=== PATIENT | female | born 1985 | race Caucasian/White ===

== ENCOUNTER → 2020-03-09 18:24 | Outpatient (CLI) | payer OTHER, SELFPAY ==
[2020-03-09 08:18] VITALS: BMI 19.6
[2020-03-09 08:50] VITALS: BMI 19.6
--- NOTE | 2020-03-09 18:28 | US_ITS ---
ACR Level 3 findings have been noted. An addendum which confirms receipt of the report will follow. HISTORY: Possible fibroid. LMP 02/28/2020. 50 one images and one cine clip. No comparison imaging. Endovaginal imaging only. Findings: The cine clip demonstrates a very heterogeneous uterus with multiple masses. The urinary bladder is mostly decompressed. The uterus is incompletely measured but suggested at 11.4 x 8.1 x 11.1 cm. The cervix contains some heterogeneous tissue. Vascularity is present within the myometrium and the tissue about the cervix, but none is present within the tissue within the endocervical canal. Within the uterine fundus as measured on the axial images there is near 11 cm mass. It is not measured in multiple planes. It is hypovascular compared to what is apparent adjacent myometrial tissue US/Transvaginal Non- IMPRESSION: Enlarged uterus with multiple masses most likely uterine leiomyomata. Apparent tissue within the endocervical canal. This of unknown etiology, and may represent blood, blood clot, or even neoplasia. at 2036 Reported and signed by: Jaydon Parker MD Electronically Signed: Jaydon Parker MD at 20:35 EDT Tel , Service support ,
== END ==
PROVIDERS: PCP Nurse Practitioner Family; Visit Provider Obstetrics & Gynecology
DX: D21.9 Benign neoplasm of connective and other soft tissue, unspecified (principal)
CPT/HCPCS: 76830

== ENCOUNTER → 2020-03-17 15:30 | Outpatient (CLI) | payer OTHER, SELFPAY ==
[2020-03-17 13:36] VITALS: BMI 19.9
[2020-03-23 16:26] LABS: HPV APTIMA, High Risk Negative (Negative)
== END ==
PROVIDERS: PCP Nurse Practitioner Family; Referring Provider Obstetrics & Gynecology; Visit Provider Obstetrics & Gynecology
DX: Z12.4 Encounter for screening for malignant neoplasm of cervix (principal)
CPT/HCPCS: 87624; 88175; G0145

== ENCOUNTER → 2020-03-27 16:39 | Outpatient (CLI) | payer OTHER, SELFPAY ==
[2020-03-27 11:21] VITALS: BMI 19.9
[2020-03-31 04:50] LABS: HPV APTIMA, High Risk Negative (Negative)
== END ==
PROVIDERS: PCP Nurse Practitioner Family; Visit Provider Obstetrics & Gynecology
DX: Z12.4 Encounter for screening for malignant neoplasm of cervix (principal)
CPT/HCPCS: 87624; 88175; G0145

== ENCOUNTER → 2020-05-22 10:00 | Outpatient (CLI) | payer OTHER, SELFPAY ==
[2020-03-27 11:21] VITALS: BMI 19.9
[2020-05-17 14:34] VITALS: BMI 19.8
[2020-05-23 14:44] LABS: Hematocrit 46.4 % (37-47); Hemoglobin 14.8 g/dL (12.0-15.0); Mean Corp Hgb Conc 31.9 g/dL (32-36); Mean Corpuscular Hgb 28.5 pg (27.0-32.0); Mean Corpuscular Volume 89.4 fL (81-99); Mean Platelet Vol. 10.6 fl (6.2-12.0); Platelet Count 266 K/mm3 (150-450); RBC Distribution Width SD 39.8 fl (35.1-43.9); Red Blood Count 5.19 M/mm3 (4.2-5.4); White Blood Count 5.7 K/mm3 (4.4-11.0)
[2020-05-23 14:46] LABS: Internal QC Validated? YES +Cl - CLEAR BKGD; Pregnancy, Urine Negative Negative
[2020-05-23 15:01] LABS: Partial Thromboplast Time 26.8 Seconds (24.1-36.2); Prothrombin Time (Protime)PT. 12.1 SECONDS (11.7-14.9)
[2020-05-23 15:13] LABS: AST(SGOT) 17 U/L (15-37); Alanine Aminotransfer ALT/SGPT 22 U/L (13-56); Albumin, Serum 4.1 g/dL (3.2-5.0); Alkaline Phosphatase 43 U/L (45-117); Bilirubin, Direct 0.14 mg/dL (0.00-0.30); Globulin 3.9 g/dL (2.2-4.2); Magnesium 2.4 mg/dL (1.6-2.6)
--- NOTE | 2020-05-30 07:39 | HP.PCM_ITS ---
- Problem List (1) Fibroid uterus Status: Acute History and Physical Date of Admission: 05/30/20 Patient presented to same-day surgery for planned total abdominal hysterectomy and bilateral salpingectomy. Upon arrival, patient reported that she had eaten beets to the prior evening and felt that she had something stuck in her throat. Upon taking preop medications, the patient began aggressively vomiting and reporting that she felt like there was something stuck in her esophagus. Decisi on made to cancel surgery. Patient sent to to emergency room for evaluation for suspected esophageal obstruction.
[2020-05-30] MEDS: Acetaminophen 500 MG Tablet 1000 MG PO (07:48)
[2020-05-30] MEDS: Celecoxib 200 MG Capsule 400 MG PO (07:48)
[2020-05-30] MEDS: Gabapentin 600 MG Tablet PO (07:49)
[2020-05-30] MEDS: Lactated Ringers 1,000 ML 40 ML IV (07:50)
[2020-05-30] MEDS: Phenazopyridine 95 MG Tablet 190 MG PO (07:50)
[2020-05-30] MEDS: Scopolamine 1mg/72hr Patch 1 PATCH TD (07:50)
[2020-05-30] MEDS: dexAMETHasone 10 MG/ML Vial 8 MG IV (07:51)
[2020-05-30 07:52] VITALS: BP 149/95; PULSE 88; RESP 18; TEMP 36.7; O2SAT 98; BMI 19.4
--- NOTE | 2020-05-30 08:11 | SUR.PREOP ---
PATIENT TOLD THIS NURSE THAT SHE GOT CHOKED ON A PIECE OF MEAT LAST NIGHT AND WAS UNABLE TO CLEAR IT FOR A COUPLE HOURS. SHE WAS ABLE TO DRINK FLUIDS UNTIL THIS MORNING. I GAVE HER SOME WATER AND HER ERAS PROTOCOL PILLS AND SHE WAS ABLE TO TAKE ALL THE SMALL ONES ONE AT A TIME WITHOUT DIFFICULTY. SHE TOOK ONE TYLENOL AND IT FELT LIKE IT GOT STUCK AGAIN. PATIENT STARTED VOMITING IMMEDIATELY AFTER ONE TYLENOL. DR. THAPA CAME IN THE ROOM AND SPOKE WITH THE PATIENT. HE WAS VERY CONCERNED AND SPOKE WITH DR. ANGEL. SHE IS GOING TO SPEAK WITH THE PATIENT, BUT THE SURGERY PROBABLY WILL NOT PROCEED AT THIS POINT D/T POSSIBLE OBSTRUCTION. MAGNESIUM WAS HELD AND PATIENT ALREADY RECEIVED ALL MEDICATIONS EXCEPT ONE TYLENOL AND IV DEXAMETHASONE. ALSO ON A SIDE NOTE PATIENT WAS UNABLE TO GET URINE SINCE SHE ALREADY VOIDED PRIOR TO COMING IN. SHE HAD A URINE TEST DONE ON 05/23/20 AND IT WAS NEGATIVE, AND SHE HAS NOT HAD INTERCOURSE SINCE.
--- NOTE | 2020-05-30 08:21 | SUR.PREOP ---
THIS NURSE WENT BACK INTO THE ROOM AND LOOKED INTO THE EMISIS BAG. THERE WAS PIECES WHAT LOOKED LIKE THE TYLENOL IN THE BAG. I WILL LET DR. ARSHAD KNOW THAT. HOPEFULLY THE TYLENOL CAME BACK UP AND IT COULD JUST POSSIBLY BE THE MEAT STILL OBSTRUCTING.
[2020-05-30 08:30] LABS: Bedside Glucose 84 mg/dL (70-110)
== END ==
PROVIDERS: Anesthesiology; PCP Nurse Practitioner Family; Referring Provider Obstetrics & Gynecology; Visit Provider Obstetrics & Gynecology
DX: Z20.828 Contact with and (suspected) exposure to other viral communicable diseases (principal)
CPT/HCPCS: 36415; 80076; 81025; 82962; 83735; 85027; 85610; 85730; 87426; C9803; J7120

== ENCOUNTER 2020-05-30 08:59 | Day surgery (SDC) | payer OTHER, SELFPAY ==
[2020-05-30] VITALS (8 sets, daily range): BP systolic 102–143; BP diastolic 55–93; PULSE 74–100; RESP 16–18; TEMP 36.8–37; O2SAT 99–100; BMI 19.4; BMI 19.3
--- NOTE | 2020-05-30 09:13 | RAD_ITS ---
STUDY: X-RAY CHEST REASON FOR EXAM: Female, 34 years old. COUGH TECHNIQUE: Single AP portable view of the chest. COMPARISON: None. FINDINGS: The lungs are clear and expanded. There is no demonstrated pleural abnormality. Normal size heart. Normal mediastinum and rosy. Normal visualized pulmonary arteries. Normal visualized aortic arch and descending thoracic aorta. Normal visualized thoracic spine. Normal visualized ribs, clavicles, and shoulders. There is no demonstrated abnormality of the visualized soft tissue structures of the upper abdomen. RAD/Chest 1 View (Portable) IMPRESSION: Normal x-ray examination of the chest. Pending Final Proof Editing
--- NOTE | 2020-05-30 09:14 | ED.VISSUMM ---
- ER Visit Summary Date of Service: 05/30/20 Chief Complaint: Possible food impaction History of Present Illness: The patient is a 34 F who presents with a possible food impaction that occurred yesterday. Patient was eating some beef stew last night when she felt like something got stuck. Patient states she thought it eventually went down last night. Patient states that when she got up today and took her medication, she felt like there was something still stuck in her lower esophagus. Patient has been vomiting but is unable to get any food up with her emesis. Patient states she is unable to swallow liquids. Patient denies any shortness of breath. Physical Examination: Vital signs are stable. Patient is afebrile. Patient is in no acute distress. Oral mucosa is pink and moist. Neck is supple. Trachea is midline. There is no JVD noted. Heart was regular rate and rhythm. Lungs are clear and equal bilaterally. Abdomen is soft. Bowel sounds are normal. There is no tenderness. There is no rebound or guarding noted. Skin is warm dry. Cranial nerves II through XII are intact. There are no focal motor or sensory deficits noted. Extremities are intact. There is no calf tenderness or edema. Test Results: Portable 1 view chest x-ray was obtained. On my interpretation, lung banks are clear. There is normal cardiac silhouette. Bony thorax is normal. There is no acute process noted. Neurologist also interpreted the x-ray and agrees. Emergency Department Course and Treatment: Patient was given IV fluids. Patient was given a dose of glucagon. Patient had no improvement with this. Case was discussed with Dr. Colbert. Patient will be taken to endoscopy for upper endoscopy. Patient will be discharged home after that. Patient and spouse understood and were agreeable with the plan. All questions were answered. Disposition: Transfer to endoscopy Impression: Esophageal food impaction This note was generated with Ide[employer] dictation software. It may contain incorrect words, spelling, and punctuation that were not noted in review of the chart prior to signing ED Disposition - Plan for ED Patient: Disposition: Acute Care Hospital [facility] Diagnosis: Obstruction of esophagus due to food impaction Instructions: ED Esophageal Foreign Body, Resolved Referrals: Dayami Bullock PREP ROOM SUPERVISOR, PREP ROOM SUPERVISOR-C [Primary Care Provider] -
[2020-05-30] MEDS: 0.9% Normal Saline 1,000 ML 999 ML IV (09:20)
[2020-05-30] MEDS: Glucagon 1 MG/ML Syringe IV (09:20)
--- NOTE | 2020-05-30 10:30 | NURSING ---
Pt. states had test week ago that was negative and no chance of being that has been ill
[2020-05-30] MEDS: Lactated Ringers 1,000 ML 100 ML IV (10:32)
--- NOTE | 2020-05-30 11:08 | HP.PCM_ITS ---
Problem List (1) Esophageal foreign body Status: Acute Qualifiers: Encounter type: initial encounter Qualified Code(s): T18.108A - Unspecified foreign body in esophagus causing other injury, initial encounter History of Present Illness Date of Admission: 05/30/20 The patient is a 34 F who presents with a possible food impaction that occurred yesterday. Patient was eating some beef stew last night when she felt like s omething got stuck. Patient states she thought it eventually went down last night. Patient states that when she got up today and took her medication, she felt like there was something still stuck in her lower esophagus. Patient has been vomiting but is unable to get any food up with her emesis. Patient states she is unable to swallow liquids. Patient denies any shortness of breath. Past Medical History Allergies amoxicillin [From Augmentin] Allergy (Verified 05/30/20 10:14) Swelling clavulanic acid [From Augmentin] Allergy (Verified 05/30/20 10:14) Swelling Home Medications: Ambulatory Orders Medication Instructions Recorded norethindrone 1 mg-ethinyl 1 tab PO DAILY 03/09/20 estradiol 35 mcg tablet Loratadine/Pseudo 240/10 1 tab PO PRN PRN 05/22/20 [Claritin-D 24 Hr] Surgical History: Surgical History (Last Reviewed 05/30/20 @ 11:[address] Davin Colbert MD) History of tonsillectomy and adenoidectomy Z98.890 Smoking Status: Never smoker - *Family History Maternal Family History: Family History (Last Reviewed 05/30/20 @ 11:[address] Davin Colbert MD) Mother H/O: hysterectomy Lung cancer Review of Systems Constitutional: Denies: Chills, Fever, Weight Change Cardiovascular: Denies: Chest Pain, Chest Pressure, Chest Tightness, P alpitations Respiratory: Denies: Cough, Hemoptysis, Shortness of breath at rest, Shortness of breath upon exertion, Wheezing VTE Information - Inpt Only VTE Present on Admission: No VTE Mechan Device Prophylaxis: None VTE Pharm Prophylaxis ordered?: No Reason prophylaxis not ordered:: Treatment Not Indicated Patient Problems: Active and Suspected Problems (Last Reviewed 05/17/20 @ 14:35 by Leah Ho) Obstruction of esophagus due to food impaction (Acute) - Physical Exam Vitals/I&O's: Vital Signs Temp Pulse Resp BP Pulse Ox 98.2 F 76 16 137/93 H 100 05/30/20 10:15 05/30/20 10:15 05/30/20 10:15 05/30/20 10:15 05/30/20 10:15 Oxygen Delivery Method Room Air Weight: 147 lb Body Mass Index (BMI) 19.3 General: Alert, Oriented x3 Lungs: Clear to auscultation Cardiovascular: Regular rate, Regular Rhythm, No murmurs Abdomen: Bowel Sounds Present, Soft, Non Tender, Non-Distended Current Medications Lactated Ringer's () 1,000 mls @ 100 mls/hr IV .Q10H JULIUS Last Admin: 05/30/20 10:32 Dose: 100 mls/hr Documented by: Assessment/Plan All Active Problems (Last Reviewed 05/17/20 @ 14:35 by Leah Ho) Fibroid uterus (Acute) Obstruction of esophagus due to food impaction (Acute) Esophageal foreign body (Acute) Plan is perform an esophagogastroduodenoscopy with removal of possible meat from the distal esophagus. Risk to include injury to the esophagus have been reviewed with the patient the patient does agree to proceed. Office Visits / Consults: 62137 OP Consult L4 - Modifier 57
--- NOTE | 2020-05-30 11:31 | OP.EGD_ITS ---
Patient Name: Alma Pak Procedure Date: 05/30/2020 11:18 AM Date of : 1985 Age: 34 Procedure: Upper GI endoscopy Indications: Foreign body in the esophagus Providers: Davin Colbert MD Medicines: See the Anesthesia note for documentation of the administered medications Patient Profile: This is a 34 year old female. Refer to note in patient chart for documentation of history and physical. Complications: No immediate complications. Procedure: Pre-Anesthesia Assessment: - Prior to the procedure, a History and Physical was performed, and patient medications and allergies were reviewed. The patient's tolerance of previous anesthesia was also reviewed. The risks and benefits of the procedure and the sedation options and risks were discussed with the patient. All questions were answered, and informed consent was obtained. Prior Anticoagulants: The patient has taken no previous anticoagulant or antiplatelet agents. ASA Grade Assessment: II - A patient with mild systemic disease. After reviewing the risks and benefits, the patient was deemed in satisfactory condition to undergo the procedure. After obtaining informed consent, the endoscope was passed under direct vision. Throughout the procedure, the patient's blood pressure, pulse, and oxygen saturations were monitored continuously. The Endoscope was introduced through the mouth, and advanced to the second part of duodenum. The upper GI endoscopy was accomplished without difficulty. The patient tolerated the procedure well. Scope In: 11:20:58 AM Scope Out: 11:24:34 AM Total Procedure Duration Time 0 hours 3 minutes 36 seconds Findings: Food was found in the distal esophagus. Removal of food was accomplished. No biopsies or other specimens were collected for this exam. The area where the meat was stuck was just slightly above where the GE junction is located. It is discolored and I do not know why I think it probably has to do with what she was eating and I was able to push the meat through into the stomach but I did not feel comfortable doing biopsies on this at this time because it was already irritated from the meat. It almost has an alligator skin appearance. I think rescoping her in 6 weeks and doing biopsies at that time would be appropriate. The Z-line was at 40 cm The entire examined stomach was normal. No biopsies or other specimens were collected for this exam. The examined duodenum was normal. No biopsies or other specimens were collected for this exam. Impression: - Food in the distal esophagus. No specimens collected. Removal was successful. - Normal stomach. No specimens collected. - Normal examined duodenum. No specimens collected. Recommendation: - Discharge patient to home. - Resume previous diet. - Use Prilosec (omeprazole) 40 mg PO daily for 2 weeks. - Repeat upper endoscopy in 6 weeks to evaluate the response to therapy. - Return to my office in 1 week. - Continue present medications. Procedure Code(s): --- Professional --- 57052, Esophagogastroduodenoscopy, flexible, transoral; with removal of foreign body(s) Diagnosis Code(s): --- Professional --- T18.128A, Food in esophagus causing other injury, initial encounter T18.108A, Unspecified foreign body in esophagus causing other injury, initial encounter CPT copyright 2017 [employer]. All rights reserved. The codes documented in this report are preliminary and upon shake feeder review may be revised to meet current compliance requirements. MD Davin Graham MD 05/30/2020 11:30:53 AM This report has been signed electronically. Number of Addenda: 0 Note Initiated On: 05/30/2020 11:18 AM
--- NOTE | 2020-05-30 11:31 | OP.CCLET_ITS ---
05/30/2020 Dayami Bullock Re : Upper GI endoscopy procedure for Alma Bullock This procedure was performed on Saturday, May 30, 2020. My impressions and recommendations are as follows: Impressions : - Food in the distal esophagus. No specimens collected. Removal was successful. - Normal stomach. No specimens collected. - Normal examined duodenum. No specimens collected. Recommendations : - Discharge patient to home. - Resume previous diet. - Use Prilosec (omeprazole) 40 mg PO daily for 2 weeks. - Repeat upper endoscopy in 6 weeks to evaluate the response to therapy. - Return to my office in 1 week. - Continue present medications. My findings are described in the full procedure note, which is enclosed. If I can be of further assistance, please feel free to contact me at Doctor phone number(s): , Fax: [phone], Work: . Sincerely, MD Davin Graham MD 05/30/2020 11:30:53 AM This report has been signed electronically.
== END 2020-05-30 12:36 | disposition home or self-care (01) ==
LOC: ED 10:12 → SDC 10:13 → AC 10:18
PROVIDERS: Emergency Provider Emergency Medicine; PCP Nurse Practitioner Family; Visit Provider Surgery
PROC: 0DJ08ZZ Inspection of Upper Intestinal Tract, Via Natural or Artificial Opening Endoscopic (ICD-10-PCS; CPT 43235; principal; 2020-05-30 11:25)
DX: T18.128A Food in esophagus causing other injury, initial encounter (principal); X58.XXXA Exposure to other specified factors, initial encounter; Y93.89 Activity, other specified; Y92.9 Unspecified place or not applicable; Y99.9 Unspecified external cause status
CPT/HCPCS: 43247; 71045; 99283; J7030; J7120; A4216; J1610; J2405

== ENCOUNTER 2020-06-20 06:19 | Inpatient (IN) | payer OTHER, SELFPAY ==
[2020-06-14 16:22] VITALS: BMI 19.8
[2020-06-19 10:00] LABS: Hematocrit 45.9 % (37-47); Hemoglobin 14.5 g/dL (12.0-15.0); Mean Corp Hgb Conc 31.6 g/dL (32-36); Mean Corpuscular Hgb 28.5 pg (27.0-32.0); Mean Corpuscular Volume 90.4 fL (81-99); Mean Platelet Vol. 11.2 fl (6.2-12.0); Platelet Count 235 K/mm3 (150-450); RBC Distribution Width CV 12.2 % (11.6-14.6); RBC Distribution Width SD 40.7 fl (35.1-43.9); Red Blood Count 5.08 M/mm3 (4.2-5.4); White Blood Count 5.8 K/mm3 (4.4-11.0)
--- NOTE | 2020-06-19 16:04 | HP.PCM_ITS ---
- Problem List (1) Fibroid uterus Status: Acute Qualifiers: History and Physical Date of Admission: 06/20/20 Intake Vital Signs 06/14/20 Height 6 ft 1 in 06/14/20 Weight: 150 lb 06/14/20 BP 146/94 H Intake Visit Reasons: DANIEL Allergies amoxicillin [From Augmentin] Allergy (Verified 06/12/20 09:34) Swelling clavulanic acid [From Augmentin] Allergy (Verified 06/12/20 09:34) Swelling PFSH Surgical History History of tonsillectomy and adenoidectomy (Acute) Family History Mother H/O: hysterectomy Lung cancer Social History (Updated 06/14/20 @ 17:[address] Cierra Gutierrez MD) Smoking Status: Never smoker alcohol intake: current details: social substance use type: does not use caffeine: Yes seatbelt use: always do you feel safe at home: Yes additional social history: Ariel valero Patient is unemployed HPI DANIEL: Details: JARED ODOM is a 34 year old who presents for pre-op visit for DANIEL, BS, possible BSO. Pregancy History 0 Elective abortions Hx Para Spontaneous abortions Hx # Term Pregnancies Ectopic pregnancies Hx # Pregnancies Multiple births # of living children ROS Const Constitutional: Reports system reviewed and no additional complaints, except as docu; denies chills or fever(s) Eyes Eyes: Reports system reviewed and no additional complaints, except as docu ENT ENT: Reports system reviewed and no additional complaints, except as docu Cardio Card: Reports system reviewed and no additional complaints, except as docu; denies chest pain, leg swelling or rapid, pounding, or irregular heartbeat Resp Resp: Reports system reviewed and no additional complaints, except as docu; denies dyspnea GI GI: Reports system reviewed and no additional complaints, except as docu; denies constipation, nausea or vomiting : Reports system reviewed and no additional complaints, except as docu; denies painful urination, pelvic pain, urinary frequency, urinary hesitancy, ur inary urgency, vaginal discharge, vaginal odor or vaginal itching Musc Musc: Reports system reviewed and no additional complaints, except as docu Skin Skin/Breast: Reports system reviewed and no additional complaints, except as docu Neuro Neuro: Reports system reviewed and no additional complaints, except as docu Psych Psych: Reports system reviewed and no additional complaints, except as docu Endo Endo: Reports system reviewed and no additional complaints, except as docu Exam Const General: cooperative, healthy appearing, comfortable, well developed, well groomed Neck Neck: normal visual inspection, full ROM Resp Effort & Inspection: normal respiratory effort, able to speak in complete sentences, symmetric chest movement Cardio Rate: regular rate Skin General: no rashes or lesions noted, elasticity normal, turgor normal Lesions: no lesions Rashes: no rashes Neuro General: alert, awake, oriented x3 Cranial Nerves: CN's II-XI intact bilaterally, PERRL, EOM intact bilaterally Cognition: normal cognition Speech: speech normal Gait: normal gait Extrem General: normal to inspection, full ROM, no pedal edema Psych Appearance: grossly normal Mental Status: mental status grossly normal Mood: congruent mood Affect: normal affect Speech and Movement: speech and movement normal Attitude: cooperative Thought Process: normal Thought Content: normal Assessment & Plan 1. Intramural, submucous, and subserous leiomyoma of uterus D25.1; D25.0; D25.2 Plan Patient presents for pre-op visit for total abdominal hysterectomy, bilateral salpingectomy, possible bilateral salpingoophorectomy Prior surgery cancelled due to esophageal food impaction - on omeprazole, reports no further issues with dysphagia since starting medication. Told by general surgery could wait until after hysterectomy to have repeat EGD to reevaluate esophagus No other changes to medical history ROS negative Aware of risks and benefits of surgery. Aware of risks of bleeding, infection, and visceral or vascular injury. Reviewed these risks at length at last visit and patient denies questions Consent signed in office today. UPDATE- I have seen the patient and performed any clinically relevant updates to the history and physical exam. Cierra Gutierrez MD
[2020-06-20] VITALS (15 sets, daily range): BP systolic 122–136; BP diastolic 77–90; PULSE 73–108; RESP 14–18; TEMP 36.1–37.1; O2SAT 95–100
[2020-06-20 06:45] LABS: Internal QC Validated? YES +Cl - CLEAR BKGD; Pregnancy, Urine Negative Negative
[2020-06-20] MEDS: Celecoxib 200 MG Capsule 400 MG PO (07:16)
[2020-06-20] MEDS: Gabapentin 600 MG Tablet PO (07:16)
[2020-06-20] MEDS: Phenazopyridine 95 MG Tablet 190 MG PO (07:16)
[2020-06-20] MEDS: Acetaminophen 500 MG Tablet 1000 MG PO ×2 (07:17→15:53)
[2020-06-20] MEDS: Scopolamine 1mg/72hr Patch 1 PATCH TD (07:18)
[2020-06-20] MEDS: Lactated Ringers 1,000 ML 40 ML IV (07:36)
[2020-06-20] MEDS: dexAMETHasone 10 MG/ML Vial 8 MG IV (07:37)
[2020-06-20 08:01] LABS: Bedside Glucose 77 mg/dL (70-110)
--- NOTE | 2020-06-20 08:35 | HYST_PTH ---
PATIENT: JARED ODOM LOC: MS3 U#:[id number] AGE/SX: 35/F ROOM: MS319 RE06/20/[address]: Dr. Cierra Gutierrez MD : 1985 BED: 1 DIS: 06/21/2020 SPEC #: [id number] RECD: 06/20/20 11:59 STATUS: LAURA BUTCHER #: [id number] EHSAN: 06/20/20 08:[address]: Cierra Gutierrez DEPT: SURGICAL PATHOLOGY RECD BY: Maia Samayoa ENTERED: 06/20/20 12:47 SP TYPE: HYSTERECT OTHR DR: STEFAN Brandt Tissues: Uterus, NOS Procedures: Surgery Specimen Level V HEADER OPERATION: ERAS, hysterectomy, DANIEL, salpingectomy PRE-OP DIAGNOSIS: Intramural submucous and subserous leiomyoma of uterus TISSUE SUBMITTED: Cervix, uterus, bilateral fallopian tubes, fibroid MICROSCOPIC DIAGNOSIS Cervix, uterus, bilateral fallopian tubes, hysterectomy and bilateral salpingectomy: Cervix - chronic cystic cervicitis. Endometrium - weakly proliferative endometrium. Myometrium - intramural and subserosal leiomyomas (largest measuring 14 cm in greatest dimension). Bilateral fallopian tubes - no pathologic diagnosis. SJ:rg 06/21/2020 MICROSCOPIC DESCRIPTION Slides are reviewed. GROSS DESCRIPTION Received in fixative is one container labeled with the patient's name and designated cervix, uterus, bilateral fallopian tubes and fibroid. The specimen consists of a hysterectomy specimen consisting of uterus with cervix and detached bilateral fallopian tubes. The uterus with cervix weighs 928 gm and measures 21 x 16 x 11 cm. The serosal surface is douglas, glistening. The uterus is markedly distorted with the presence of a large subserosal nodular mass. The ectocervical mucosa is focally eroded. The external os is circular in contour. The endocervical canal measures 4 cm in length and the endocervical mucosa is unremarkable. The triangular endometrial cavity measures 4 cm in length and up to 2 cm in width. The endometrium is douglas, glistening without any mass lesion and measures 0.1 cm in thickness. Sections of the uterine wall reveal a large subserosal nodular mass measuring 14 cm in greatest dimension. Sections of this mass reveals douglas whorled cut surfaces without areas of hemorrhage, necrosis or cystic degeneration. Sections of the uterine wall also reveal a few smaller nodular masses measuring 0.2 to 0.5 cm in greatest dimension. The uninvolved uterine wall measures up to 2 cm in thickness. The fallopian tubes are not identified as right or left. One of the fallopian tube measures 5 cm in length and 0.5 cm in diameter. The fimbrial end is identified. Sections reveal unremarkable cut surfaces. The second fallopian tube is similar in appearance to the other one and measures 4 cm in length and 0.5 cm in diameter. Cosmetic Consultant sections are submitted in 12 cassettes as follows: 1 - anterior cervix, 2??posterior cervix, 3 & 4 - anterior uterine wall, 5 & 6 - posterior uterine wall, sections of the uterine wall also contains the smaller nodular masses, 7-10 - largest subserosal nodular mass, 11 & 12 - bilateral fallopian tubes with each cassette containing one fallopian tube. / NAIMA:analy 06/20/20 TC:1 CPT: 06436
[2020-06-20] MEDS: Cefazolin 2 GM in 0.9% Normal Saline 100 ML IV (08:43)
[2020-06-20] MEDS: Lactated Ringers 1,000 ML 70 ML IV ×2 (10:16→13:43)
[2020-06-20] MEDS: Ondansetron ODT 4 MG Tablet PO (14:17)
[2020-06-20] MEDS: oxyCODONE 5 MG Tablet PO (15:52)
--- NOTE | 2020-06-20 16:03 | CASEMGMT ---
RN CM PUBLIC HEALTH ASSISTANT CM to room to meet with patient for initial transition planning/care coordination assessment. RN MICHELLE introduced self and role at [facility]. Pt voices understanding and consents to assessment at this time. Pt resting in bed in no distress at this time. @ bedside. Pt is A/O at this time and answers all questions appropriately. Care providers, pharmacy, and demographics verified/updated at this time. PCP: Dayami Bullock NP Specialists:Dr Gutierrez-surgeon. Change Booth Attendant @ [facility] Pharmacy: [facility] Retail Insurance: [employer] Prescription Benefit: yes Living Will/HPOA: Pt does not currently have LW/HCPOA. Made aware that pt can contact SW as an out-pt and make appt in the future if she decides she would like to talk with someone about this or would like to utilize [facility] social work for advanced directive completion. Given Ui Programmer Rac card with information and contact number. LNOK: , Tr Living Arrangements: Lives w/her , Tr. Independent. Transportation: Pt states drives self and states no transportation concerns at this time. also drives. DME: Denies using any DME and denies needs. HHC/SNF: no history of either Pt/ wish for pt to return home and states has no concerns with going home at time of discharge. CM to follow for home oxygen needs and any discharge planning/needs. Pt/ voice no concerns/needs at this time. Advised them to ask for CM if any further questions/concerns/needs arise. They voice understanding. PLAN: Home w/spousal support and discharge plans in place. Alona DARLING RN, CM
--- NOTE | 2020-06-20 17:25 | PCM.OPRPT ---
Problem List (1) Fibroid uterus Status: Acute Qualifiers: Report of Operation Date of Procedure: 06/20/20 Pre-Operative Diagnosis: Fibroid uterus Post-Operative Diagnosis: Same Surgery/Procedure Performed:: Total abdominal hysterectomy, bilateral salpingectomy via Pfannenstiel skin incision Description of Surgical Findings:: Enlarged fibroid uterus with large posterior fibroid completely filling the posterior cul-de-sac. Normal-appearing tubes and ovaries bilaterally. plastic surgery assistant: Margret Kulkarni Type of Anesthesia:: General Special Medications: Ancef 2 g Specimen's removed: Uterus, cervix, bilateral fallopian tubes Estimated Blood Loss (mL): 100 cc Fluids Replaced: 1500 cc Description of Procedure: Patient was taken to the operating room where general anesthesia was obtained without difficulty. She was prepped and draped in the dorsal supine position. Degroot catheter was inserted under sterile technique. A Pfannenstiel incision was made with a scalpel. The incision was carried down to the fascia with the Bovie. The fascia was incised transversely and dissected off the rectus muscle using sharp dissection with the Bovie. Electrocautery was used for hemostasis. The peritoneum was opened taking care not to injure any underlying structures. Laparotomy revealed no obvious abnormalities. A large Eugene retractor was placed and the bowel was packed away into the upper abdomen to improve visualization and protect adjacent tissue. The above findings were noted. The tubes and ovaries appeared normal bilaterally. The cornea were grasped using Kalli clamps and the uterus elevated. The fallopian tubes were elevated bilaterally and the mesosalpinx was cauterized and transected using the Bovie. The tubes were amputated and removed from the operative field. The round ligament on the left was grasped and divided using cautery and then suture ligated. The peritoneum was opened lateral to the infundibulopelvic ligaments. The anterior leaf of the broad ligament was divided and a bladder flap created. The ureters were identified and found to be well low in the pelvis and clear of the surgical field. An avascular window was found in the posterior leaf of the broad ligament and a hole opened. The uteroovarian ligament was clamped, cut and double ligated. The same procedure was carried out on the right with the ureter again found to be well low in the pelvis and clear of the surgical field. Once the anterior leaf of the broad ligament was completely divided the bladder was taken down off the lower segment of the uterus and the cervix using a combination of cautery and blunt dissection. The uterine vessels were skeletonized bilaterally. The uterine vessels were bilaterally clamped, cut and suture ligated. The cardinal ligaments were bilaterally clamped, cut and suture ligated. The uterosacral ligaments were bilaterally clamped, cut and suture ligated.The cervix was then divided sharply from the vagina. The uterus, tubes, and cervix were all sent to pathology. Both corners of the vaginal vault were secured and the vault was closed with interrupted figures of 8 of 0 Vicryl suture. All pedicles were then sequentially checked for hemostasis which appeared excellent. The pelvis was irrigated with 1000 cc of normal saline to clear out all clots and debris. Dimitri was then placed over the vaginal cuff and surgical pedicles. All packs and retractors were removed from the abdomen. The peritoneum was closed using a running 3-0 vicryl suture. The subfascial space was inspected and hemostasis obtained with cautery. The fascia was closed using #1 stratafix suture in a running fashion. Subcutaneous tissue was inspected and hemostasis ensured with cautery. Subcutaneous space was closed with 3-0 Monocryl suture in a running fashion. The skin was closed with a running subcuticular suture using 4-0 Monocryl suture. At the end of the procedure all sponge, needle and instrument counts were correct. The patient was extubated and taken to recovery in stable condition. - Complications None apparent - Admit VTE Documentation VTE Present on Admission: No VTE Mechan Device Prophylaxis: SCD's VTE Pharm Prophylaxis ordered?: No Multi Select Codes - Urinary/Genital Urinary/Genital CPT Codes: 47819 [facility]
--- NOTE | 2020-06-20 17:39 | DCINST_ITS ---
Discharge Diet: No Restrictions Discharge Activity: Return to Normal Activity, May Not Drive - while taking narcotic pain medications., May Shower May resume sexual activity in: 6-8 weeks Call your doctor if your incision/area has: Continuous Slow Oozing, Sudden Increased Bleeding, Increased Pain/ Swelling, Increased Redness, Foul Smelling Discharge Call your doctor if you observe: Fever of 101 or Higher, Inability to urinate, Inability to have a bowel movement, Using more than one pad per hour Allergies/Adverse Reactions: Allergies amoxicillin [From Augmentin] Allergy (Verified 06/12/20 09:34) Swelling clavulanic acid [From Augmentin] Allergy (Verified 06/12/20 09:34) Swelling Medications to take at Discharge norethindrone 1 mg-ethinyl estradiol 35 mcg tablet 1 tab PO DAILY 03/09/20 Omeprazole 20 mg PO BID 06/12/20 Loratadine [Claritin] 10 mg PO DAILY PRN PRN 06/20/20 Primary Care Physician: Dayami Bullock INTENSIVE CARE UNIT NURSE, INTENSIVE CARE UNIT NURSE-C [Primary Care Provider] - Test Results: Test results from this visit will be discussed in further detail at your follow- up appointment, if applicable.
[2020-06-20] MEDS: Ketorolac 30 MG/ML Syringe IV (18:03)
[2020-06-20] MEDS: Pantoprazole Sodium 20 MG Tablet PO (22:00)
[2020-06-20] MEDS: Docusate Sodium 100 MG Capsule PO (22:00)
[2020-06-21] MEDS: Acetaminophen 500 MG Tablet 1000 MG PO ×4 (00:03→18:14)
[2020-06-21] MEDS: Ketorolac 30 MG/ML Syringe IV ×2 (00:03→05:41)
[2020-06-21] MEDS: 0.9% Saline Lock 10 ML Syringe IV (00:07)
[2020-06-21 02:20] VITALS: BP 118/79; PULSE 73; RESP 16; TEMP 36.7; O2SAT 97
[2020-06-21 05:28] LABS: Hematocrit 36.6 % (37-47); Mean Corp Hgb Conc 32.8 g/dL (32-36); Mean Corpuscular Hgb 29.4 pg (27.0-32.0); Mean Corpuscular Volume 89.7 fL (81-99); Mean Platelet Vol. 10.9 fl (6.2-12.0); Platelet Count 208 K/mm3 (150-450); RBC Distribution Width SD 39.3 fl (35.1-43.9); Red Blood Count 4.08 M/mm3 (4.2-5.4); White Blood Count 12.7 K/mm3 (4.4-11.0)
[2020-06-21 05:45] VITALS: BP 124/87; PULSE 68; RESP 16; TEMP 36.7; O2SAT 98
[2020-06-21 07:20] VITALS: O2SAT 98
--- NOTE | 2020-06-21 08:00 | PN.OBGYN_ITS ---
Patient Problems: Active and Suspected Problems (Last Reviewed 06/14/20 @ 16:21 by Leah Ho) Fibroid uterus (Acute) - Physical Exam Vitals/I&O's: Vital Signs Temp Pulse Resp BP Pulse Ox 98.1 F 68 16 124/87 H 98 06/21/20 05:45 06/21/20 05:45 06/21/20 05:45 06/21/20 05:45 06/21/20 05:45 Oxygen Flow Rate (L/min) 6 Oxygen Delivery Method Room Air Weight: 151 lb 7.321 oz Body Mass Index (BMI) 20.0 Intake and Output for Last 24 Hours 06/19/20 06/20/20 06/21/20 23:59 23:59 23:59 Intake Total 2301.5 / 2301.5 1246.33 / 1246.33 Output Total 1050 / 1050 225 / 225 Balance 1251.5 / 1251.5 1021.33 / 1021.33 Microbiology Past 72 Hours 06/19/20 08:30 Interface Orders SARS-CoV-2 Antigen (Rapid) - Final Laboratory Results 06/20/20 07:14: POC Glucose 77 06/21/20 05:12: WBC 12.7 H, RBC 4.08 L, Hgb 12.0, Hct 36.6 L, MCV 89.7, MCH 29.4, MCHC 32.8, RDW Std Deviation 39.3, RDW Coeff of James 12.0, Plt Count 208, MPV 10.9 Current Medications Acetaminophen (Acetaminophen 500 Mg Tablet) 1,000 mg PO Q6 [facility] Last Admin: 06/21/20 05:41 Dose: 1,000 mg Documented by: Docusate Sodium (Docusate Sodium 100 Mg Capsule) 100 mg PO BID [facility] Last Admin: 06/20/20 22:00 Dose: 100 mg Documented by: Lactated Ringer's () 1,000 mls @ 70 mls/hr IV .[id number] [facility] Stop: 06/21/20 11:44 Last Infusion: 06/21/20 05:45 Dose: Infused Documented by: Sodium Chloride () 250 mls @ 15 mls/hr IV .[id number] PRN PRN Reason: Saline Flush Sodium Chloride () 250 mls @ 15 mls/hr IV .[id number] PRN PRN Reason: Additional IVPB Infusion Ketorolac Tromethamine (Ketorolac 30 Mg/Ml Syringe) 30 mg IV Q6 [facility] Stop: 06/22/20 00:01 Last Admin: 06/21/20 05:41 Dose: 30 mg Documented by: Loratadine (Loratadine 10 Mg Tablet) 10 mg PO DAILY PRN PRN Reason: ALLERGIES Magnesium Chloride (Magnesium Chloride 64 Mg Delay Rel.Tablet) 128 mg PO DAILY PRN PRN PRN Reason: Constipation Nutritional Formula (Lactose Free) (Ensure Enlive 120 Ml Liquid) 120 ml PO TIDCM [facility] Ondansetron HCl (Ondansetron Odt 4 Mg Tablet) 4 mg PO Q6H PRN PRN PRN Reason: NAUSEA Last Admin: 06/20/20 14:17 Dose: 4 mg Documented by: Oxycodone HCl (Oxycodone 5 Mg Tablet) 5 - 10 mg PO Q4H PRN PRN PRN Reason: Pain Score 4-10 Last Admin: 06/20/20 15:52 Dose: 10 mg Documented by: Pantoprazole Sodium (Pantoprazole Sodium 20 Mg Tablet) 20 mg PO BID [facility] Last Admin: 06/20/20 22:00 Dose: 20 mg Documented by: Polyethylene Glycol (Polyethylene Glycol 3350 17 Gm Packet) 17 gm PO DAILY [facility] Simethicone (Simethicone 80 Mg Tablet) 80 mg PO TID [facility] Last Admin: 06/21/20 05:41 Dose: 80 mg Documented by: Sodium Chloride (0.9% Saline Lock 10 Ml Syringe) 10 - 40 ml IV UD PRN PRN Reason: SALINE FLUSH Last Admin: 06/21/20 00:07 Dose: 10 ml Documented by: Medical Necessity - Tobacco Use Smoking Status: Never smoker Tobacco Use: Non-smoker Assessment/Plan All Active Problems (Last Reviewed 06/14/20 @ 16:21 by Leah Ho) Fibroid uterus (Acute) Obstruction of esophagus due to food impaction (Acute) Esophageal foreign body (Acute)
[2020-06-21] MEDS: Docusate Sodium 100 MG Capsule PO (08:30)
[2020-06-21] MEDS: Polyethylene Glycol 3350 17 GM PACKET PO (08:30)
[2020-06-21] MEDS: Pantoprazole Sodium 20 MG Tablet PO (08:31)
[2020-06-21 10:06] VITALS: BP 129/66; PULSE 78; RESP 16; TEMP 36.9; O2SAT 98
[2020-06-21] MEDS: oxyCODONE 5 MG Tablet PO (10:13)
--- NOTE | 2020-06-21 11:14 | PCM.PN.OB ---
Patient Problems: Active and Suspected Problems (Last Reviewed 06/14/20 @ 16:21 by Leah Ho) Fibroid uterus (Acute) Subjective: Patient seen and examined. Reports doing well. Pain well controlled with pain meds. Tolerating fluids by mouth. Has not tried eating. Not yet passing gas. Was able to get up to chair yesterday evening. Objective: Laboratory Tests 06/21/20 06/20/20 06/20/20 Range/Units 05:12 07:14 06:30 WBC 12.7 H (4.4-11.0) K/mm3 RBC 4.08 L (4.2-5.4) M/mm3 Hgb 12.0 (12.0-15.0) g/dL Hct 36.6 L (37-47) % MCV 89.7 (81-99) fL MCH 29.4 (27.0-32.0) pg MCHC 32.8 (32-36) g/dL RDW Std Deviation 39.3 (35.1-43.9) fl RDW Coeff of James 12.0 (11.6-14.6) % Plt Count 208 (150-450) K/mm3 MPV 10.9 (6.2-12.0) fl Urine Test Negative Negative POC Glucose 77 (70-110) mg/dL Blood Type Antibody Screen 06/19/20 06/19/20 Range/Units 08:42 08:42 WBC 5.8 (4.4-11.0) K/mm3 RBC 5.08 (4.2-5.4) M/mm3 Hgb 14.5 (12.0-15.0) g/dL Hct 45.9 (37-47) % MCV 90.4 (81-99) fL MCH 28.5 (27.0-32.0) pg MCHC 31.6 L (32-36) g/dL RDW Std Deviation 40.7 (35.1-43.9) fl RDW Coeff of James 12.2 (11.6-14.6) % Plt Count 235 (150-450) K/mm3 MPV 11.2 (6.2-12.0) fl Urine Test Negative POC Glucose (70-110) mg/dL Blood Type A POSITIVE Antibody Screen NEGATIVE - Physical Exam Vitals/I&O's: Vital Signs Temp Pulse Resp BP Pulse Ox 98.5 F 78 16 129/66 H 98 06/21/20 10:06 06/21/20 10:06 06/21/20 10:06 06/21/20 10:06 06/21/20 10:06 Oxygen Flow Rate (L/min) 6 Oxygen Delivery Method Room Air Weight: 151 lb 7.321 oz Body Mass Index (BMI) 20.0 Intake and Output for Last 24 Hours 06/19/20 06/20/20 06/21/20 23:59 23:59 23:59 Intake Total 2301.5 / 2301.5 1246.33 / 1246.33 Output Total 1050 / 1050 225 / 225 Balance 1251.5 / 1251.5 1021.33 / 1021.33 General: Alert, Oriented x3, Cooperative, No apparent distress, Well developed, Well nourished HEENT: Atraumatic, PERRLA, EOMI, Normocephalic Neck: Supple, No JVD Lungs: Clear to auscultation, Normal air movement, No rhonchi, No wheeze, No rales Cardiovascular: Regular rate, Regular Rhythm, Normal S1, Normal S2 Abdomen: Bowel Sounds Present, Soft, Non-Distended, Tender - mildly, - - incision c/d/i with dressing in place Extremities: No edema, No Calf Tenderness Neurological: Cranial nerves II-XII grossly intact, Neuro grossly intact Psych/Mental Status: Normal Affect, Appropriate Microbiology Past 72 Hours 06/19/20 08:30 Interface Orders SARS-CoV-2 Antigen (Rapid) - Final Laboratory Results 06/21/20 05:12: WBC 12.7 H, RBC 4.08 L, Hgb 12.0, Hct 36.6 L, MCV 89.7, MCH 29.4, MCHC 32.8, RDW Std Deviation 39.3, RDW Coeff of James 12.0, Plt Count 208, MPV 10.9 Current Medications Acetaminophen (Acetaminophen 500 Mg Tablet) 1,000 mg PO Q6 [facility] Last Admin: 06/21/20 05:41 Dose: 1,000 mg Documented by: Docusate Sodium (Docusate Sodium 100 Mg Capsule) 100 mg PO BID [facility] Last Admin: 06/21/20 08:30 Dose: 100 mg Documented by: Lactated Ringer's () 1,000 mls @ 70 mls/hr IV .[id number] [facility] Stop: 06/21/20 11:44 Last Infusion: 06/21/20 05:45 Dose: Infused Documented by: Sodium Chloride () 250 mls @ 15 mls/hr IV .[id number] PRN PRN Reason: Saline Flush Sodium Chloride () 250 mls @ 15 mls/hr IV .[id number] PRN PRN Reason: Additional IVPB Infusion Ketorolac Tromethamine (Ketorolac 30 Mg/Ml Syringe) 30 mg IV Q6 [facility] Stop: 06/22/20 00:01 Last Admin: 06/21/20 05:41 Dose: 30 mg Documented by: Loratadine (Loratadine 10 Mg Tablet) 10 mg PO DAILY PRN PRN Reason: ALLERGIES Magnesium Chloride (Magnesium Chloride 64 Mg Delay Rel.Tablet) 128 mg PO DAILY PRN PRN PRN Reason: Constipation Nutritional Formula (Lactose Free) (Ensure Enlive 120 Ml Liquid) 120 ml PO TIDCM [facility] Last Admin: 06/21/20 08:29 Dose: 120 ml Documented by: Ondansetron HCl (Ondansetron Odt 4 Mg Tablet) 4 mg PO Q6H PRN PRN PRN Reason: NAUSEA Last Admin: 06/20/20 14:17 Dose: 4 mg Documented by: Oxycodone HCl (Oxycodone 5 Mg Tablet) 5 - 10 mg PO Q4H PRN PRN PRN Reason: Pain Score 4-10 Last Admin: 06/21/20 10:13 Dose: 10 mg Documented by: Pantoprazole Sodium (Pantoprazole Sodium 20 Mg Tablet) 20 mg PO BID [facility] Last Admin: 06/21/20 08:31 Dose: 20 mg Documented by: Polyethylene Glycol (Polyethylene Glycol 3350 17 Gm Packet) 17 gm PO DAILY [facility] Last Admin: 06/21/20 08:30 Dose: 17 gm Documented by: Simethicone (Simethicone 80 Mg Tablet) 80 mg PO TID [facility] Last Admin: 06/21/20 05:41 Dose: 80 mg Documented by: Sodium Chloride (0.9% Saline Lock 10 Ml Syringe) 10 - 40 ml IV UD PRN PRN Reason: SALINE FLUSH Last Admin: 06/21/20 00:07 Dose: 10 ml Documented by: Medical Necessity - Tobacco Use Smoking Status: Never smoker Tobacco Use: Non-smoker Assessment/Plan All Active Problems (Last Reviewed 06/14/20 @ 16:21 by Leah Ho) H/O bilateral salpingectomy (Resolved ~06/20/20) S/P DANIEL (total abdominal hysterectomy) (Resolved ~06/20/20) Fibroid uterus (Acute) Obstruction of esophagus due to food impaction (Acute) Esophageal foreign body (Acute) 35yoF POD#1 s/p DANIEL, BS Post-op state - Patient doing well - Vitals stable - Post-op Hb 12 - Incision c/d/i with dressing in place - Pain controlled with pain meds - Degroot out this am - Encouraged ambulation - Discussed could discharge home this evening if has return of bowel function - on bowel regimen of colace, miralax, and simethicone
[2020-06-21] MEDS: Ibuprofen 400 MG Tablet 800 MG PO (14:10)
[2020-06-21 15:00] VITALS: BP 117/73; PULSE 73; RESP 16; TEMP 36.9; O2SAT 98
--- NOTE | 2020-06-21 17:30 | PCM.PN.BLA ---
Progress Note Patient seen and examined. Reports doing well. Has been able to ambulate around the room. Pain well controlled. Tolerating PO. Passing gas. Urinating without difficulty. Will DC to home at this time. Discussed bowel regimen for home. Discussed homegoing restrictions and reasons to call. STROKE Vital Signs/Narrative: Vital Signs Temp Pulse Resp BP Pulse Ox 06/21/20 15:00 98.4 F 73 16 117/73 98
== END 2020-06-21 18:20 | disposition home or self-care (01) | DRG 743 ==
LOC: ACINP 06:23 → MS3 08:46
PROVIDERS: Admitting Provider Obstetrics & Gynecology; PCP Nurse Practitioner Family; Referring Provider Obstetrics & Gynecology; Visit Provider Obstetrics & Gynecology
PROC: 0UT90ZZ Resection of Uterus, Open Approach (ICD-10-PCS; CPT 58150; principal; 2020-06-20 08:15)
DX: D25.1 Intramural leiomyoma of uterus (principal); Z20.828 Contact with and (suspected) exposure to other viral communicable diseases; D25.2 Subserosal leiomyoma of uterus; D25.0 Submucous leiomyoma of uterus
CPT/HCPCS: 36415; 81025; 82962; 85027; 86850; 86900; 86901; 87426; 88307; 99251; C9803; J7120; A4216; G0463; J2405

== ENCOUNTER → 2020-07-21 16:46 | Outpatient (CLI) | payer OTHER, SELFPAY ==
[2020-07-21 16:11] VITALS: BMI 19.5
== END ==
PROVIDERS: Referring Provider Obstetrics & Gynecology; Visit Provider Obstetrics & Gynecology
DX: N39.0 Urinary tract infection, site not specified (principal)
CPT/HCPCS: 87086; 87088

== ENCOUNTER → 2021-04-10 09:28 | Outpatient (CLI) | payer OTHER, SELFPAY ==
[2021-04-10 10:46] LABS: Erythrocyte Sedimentation Rate < 1 mm/hr (0-30)
[2021-04-10 10:48] LABS: Absolute Lymphocyte Count 2.28 X10^3/uL (0.83-4.51); Basophil# 0.05 X10^3/uL; Eosinophil# 0.33 X10^3/uL; Eosinophils% 6.6 % (0-5); Hematocrit 40.8 % (37-47); Hemoglobin 13.3 g/dL (12.0-15.0); Lymphocyte # 2.28 X10^3/ul (0.83-4.51); Lymphocyte % 45.7 % (19-41); Mean Corp Hgb Conc 32.6 g/dL (32-36); Mean Corpuscular Hgb 28.9 pg (27.0-32.0); Mean Corpuscular Volume 88.7 fL (81-99); Mean Platelet Vol. 10.7 fl (6.2-12.0); Monocyte# 0.34 X10^3/uL; Monocyte% 6.8 % (0-10); NRBC Flagged by Analyzer 0 % (0-5); Neutrophil # 1.98 X10^3/uL (2.7-7.7); Neutrophil % 39.7 % (47-70); Platelet Count 217 K/mm3 (150-450); RBC Distribution Width SD 38.9 fl (35.1-43.9)
[2021-04-10 11:25] LABS: Vitamin B12 673 pg/mL (211-911)
[2021-04-10 11:37] LABS: ALB/GLOB Ratio 1.2 RATIO (0.9-2.4); AST(SGOT) 15 U/L (15-37); Alanine Aminotransfer ALT/SGPT 21 U/L (13-56); Albumin, Serum 4.3 g/dL (3.2-5.0); Alkaline Phosphatase 65 U/L (45-117); Anion Gap 8 (5-15); BUN 16 mg/dL (7-18); BUN/Creat Ratio 17.1 RATIO (10-20); CRP < 2.90 mg/L (0.0-3.0); Chloride 103 mmol/L (98-107); Creatinine, Serum 0.94 mg/dL (0.55-1.02); EST Glomerular Filtration Rate 71 mL/min (>60); Est Glom Filt Rate - Afr Amer 86 mL/min (>60); Globulin 3.5 g/dL (2.2-4.2); Glucose 79 mg/dL (74-106); LDH 164 U/L (84-246); Potassium 3.5 mmol/L (3.5-5.1); Protein, Total 7.8 g/dL (6.4-8.2); Sodium Level 139 mmol/L (136-145); Thyroid Stim Hormone (TSH) 1.26 uIU/mL (0.358-3.74)
[2021-04-13 06:07] LABS: Angiotensin Convert Enzyme 37 U/L (14-82); Cytoplasmic Ab (C-ANCA) <1:20 titer (Neg:<1:20); Endomysial Antibody IgA Negative (Negative); Immunoglobulin A 207 mg/dL (87-352)
[2021-04-13 08:17] LABS: Immunoglobulin E 131 IU/mL (6-495); Perinuclear Ab (P-ANCA) <1:20 titer (Neg:<1:20); t-Transglutaminase IgA <2 U/mL (0-3)
[2021-04-13 14:09] LABS: Anti-Centromere B Ab <0.2 AI (0.0-0.9); Anti-Chromatin <0.2 AI (0.0-0.9); Anti-Jo <0.2 AI (0.0-0.9); Anti-Scleroderma-70 AB <0.2 AI (0.0-0.9); Anti-ribosomal P Antibodies <0.2 AI (0.0-0.9); Clam 0.12 kU/L (Class 0/I); Codfish <0.10 kU/L (Class 0); Corn 0.88 kU/L (Class II); Egg, White 0.37 kU/L (Class I); Milk (Cow) <0.10 kU/L (Class 0); Peanut 1.84 kU/L (Class III); RNP Ab 0.3 AI (0.0-0.9); SJOGREN'S Anti-SS-A test < 0.2 AI (0.0-0.9); SJOGREN'S Anti-SS-B test < 0.2 AI (0.0-0.9); Shrimp <0.10 kU/L (Class 0); Smith Ab <0.2 AI (0.0-0.9); Smith/RNP Ab <0.2 AI (0.0-0.9); Soybean 0.96 kU/L (Class II); Vitamin D 1,25-Dihydroxy 54.3 pg/mL (19.9-79.3); Walnut, (Food) 0.71 kU/L (Class II); Wheat 1.28 kU/L (Class II)
[2021-04-13 14:27] LABS: Anti-dsDNA Ab 7 IU/mL (0-9); SESAME SEED 1.77 kU/L (Class III)
== END ==
PROVIDERS: PCP Nurse Practitioner Family; Referring Provider Internal Medicine Gastroenterology; Visit Provider Internal Medicine Gastroenterology
DX: K20.0 Eosinophilic esophagitis (principal)
CPT/HCPCS: 36415; 80053; 82164; 82607; 82652; 82784; 82785; 83516; 83615; 84443; 85025; 85652; 86003; 86038; 86140; 86225; 86235; 86255; 86256

== ENCOUNTER 2021-05-07 07:33 | Day surgery (SDC) | payer OTHER, SELFPAY ==
[2021-05-07 07:47] VITALS: BP 126/88; PULSE 85; RESP 16; TEMP 36.6; O2SAT 100; BMI 19.7
--- NOTE | 2021-05-07 08:33 | HP.PCM_ITS ---
History and Physical Date of Admission: 05/07/21 35 F who presents to the office today for Onset years ago with increasing frequency. All symptoms started at the same time. She has been having difficulty with continuous reflux causing bad taste in her mouth. Constipation without fiber. Bloating and stomach pains with PO intake. Difficulty swallowing and lodging of food. New onset with hemorrhoids. Foods that cause cramping, bloating, pain and increased acid include: kiwi, banana, avocado, grapes, kale, spinach, christelle, raw tomato, mushrooms, broccoli (cooked or raw), oatmeal, whey protein. 05/30/20 EGD performed to dislodge food stuck in her esophagus. No specimens collected at that time. Recommended repeat EGD in 6 weeks that was not done. Omeprazole prescribed, she stopped taking this because it made her symptoms worse. Started pepcid 20mg daily. Hysterectomy performed 06/20/20 due to fibroid uterus. ROS Const Constitutional: Positive for fatigue ENT ENT: Positive for nasal congestion Gastro GI: Positive for abdominal pain, bloating, constipation and heartburn Musc Musculoskeletal: Positive for back pain Psych Psychiatric: Positive for anxiety Endo Endocrine: Positive for fatigue Evan/Lymp Hematologic/Lymphatic: Positive for easy bruising Exam Const General: cooperative and comfortable Nutritional Appearance: average body habitus and well nourished HENMA Head: normal to inspection Ears: hearing grossly normal bilaterally Nose: external nose normal Face and sinus: normal facial exam Mouth: oral mucosae normal Throat: posterior oropharynx normal Eyes General: appearance normal, both eyes and all related structures Neck Neck: normal visual inspection Chest Chest palpation & inspection: normal inspection of the chest and normal palpation of entire chest wall Resp Effort & Inspection: normal respiratory effort Auscultation: Bilateral: Clear to Auscultation Cardio Palpation: normal PMI Rate: regular rate Rhythm: regular rhythm GI Inspection: normal to inspection Auscultation: normal bowel sounds Percussion: normal to percussion Palpation: no hepatosplenomegaly Skin General: no rashes or lesions noted Neuro General: patient alert Extrem General: normal to inspection Psych Affect: normal affect Quality Reporting Tobacco Screening ([facility] 138) Smoking Status: Never smoker Assessment and Plan Assessment and Plan (1) Eosinophilic esophagitis: Status: Acute Orders: Orders: Comprehensive Metabolic Profil Today CRP Today LDH Today CBC W/Diff, Automated Today Erythrocyte Sed Rate Today Angiotensin Convert Enzyme Today ANCA Today Celiac Disease Profile Today Vitamin B12 Today Thyroid Stim Hormone (TSH) Today Allergen, Food Profile Today Vitamin D 1,25-Dihydroxy Today Immunoglobulin E Today Miscellaneous Lab Procedure Today Plan - Dr. Paiz Friend, DO: This is a possibility of Eosinophilic esophagitis or other diseases of the esophagus. She will undergo an upper endoscopy to evaluate her upper GI tract along with a biochemical analysis. (2) Constipation: Status: Acute Plan - Dr. Paiz Friend, DO: She will need to take Citracil and possibly a probiotic This is an updated H&P no changes noted
--- NOTE | 2021-05-07 08:45 | IMM_PTH ---
PATIENT: JARED ODOM LOC: EN U#:[id number] AGE/SX: 35/F ROOM: RE05/07/[address]: Dr. Chencho Skinner DO : 1985 BED: DIS: 05/07/2021 SPEC #: [id number] RECD: 05/07/21 14:21 STATUS: LAURA REQ #: [id number] EHSAN: 05/07/21 08:[address]: Chencho Skinner DEPT: IMMUNOHISTOCHEMISTRY RECD BY: Minoo Walton ENTERED: 05/07/21 14:21 SP TYPE: IMMUNO OTHR DR: Dayami Bullock, INVESTIGATOR [employer]-C Tissues: B - Stomach, NOS Procedures: H Pylori (initial) PHYSICIAN & INSTITUTION [place] [id number] SPECIMEN INFORMATION: Tissue Source: B ? Gastric body Clinical Info: Eosinophilic esophagitis, constipation Specimen Number: [id number] CPT code: 79120 METHODOLOGY: Deparaffinized sections of prefer/formalin-fixed tissue or PAP/DQ stained slides are incubated with monoclonal/polyclonal antibodies/oligonucleotide probes. Localization is made via biotin free immunoperoxidase method. Appropriate controls are performed and reacted as expected. Results on target cell population are indicated in the following table: RESULTS: ANTIBODY / CLONE RESULT Block B H Pylori (polyclonal) negative These tests were developed and their performance characteristics determined by [facility]. They may not have been cleared or approved by the U.S. Food and Drug Administration. The FDA has determined that such clearance or approval is not necessary. INTERPRETATION: B. Gastric body, biopsy: Negative for Helicobacter pylori organisms. SJ:analy 05/08/2021
--- NOTE | 2021-05-07 08:45 | EGD_PTH ---
PATIENT: JARED ODOM LOC: EN U#:[id number] AGE/SX: 35/F ROOM: RE05/07/[address]: Dr. Chencho Skinnre DO : 1985 BED: DIS: 05/07/2021 SPEC #: [id number] RECD: 05/07/21 10:42 STATUS: LAURA RESonia #: [id number] EHSAN: 05/07/21 08:[address]: Chencho Skinner DEPT: SURGICAL PATHOLOGY RECD BY: Maia Samayoa ENTERED: 05/07/21 11:25 SP TYPE: EGD BIOPSY VENKATESH DR: Dayami Bullock, BRENDA-C Tissues: A - Duodenum, NOS B - Gastric mucous membrane C - Esophagus, NOS Procedures: Surgery Specimen Level IV HEADER OPERATION: EGD ([place]) PRE-OP DIAGNOSIS: Eosinophilic esophagitis, constipation TISSUE SUBMITTED: A ? Duodenum biopsy, B ? Gastric body biopsy, C ? Distal esophagus biopsy MICROSCOPIC DIAGNOSIS A. Duodenum, biopsy: Fragments of small intestinal mucosa, no pathologic diagnosis. B. Gastric body, biopsy: Mild gastritis. See microscopic description and comment. C. Distal esophagus, biopsy: Fragments of gastric mucosa with congestion, hemorrhage and mild chronic inflammation. Intestinal metaplasia (goblet cell metaplasia) not identified. See comment. SJ:analy 05/08/2021 COMMENT B. The results of immunohistochemistry for Helicobacter pylori will be reported separately ([id number]). C. Alcian blue/PAS stain with matched control is used in the evaluation of the specimen. MICROSCOPIC DESCRIPTION Slides are reviewed. B. The specimen shows fragments of gastric mucosa with chronic inflammatory cell infiltrates in the lamina propria consisting of lymphocytes and plasma cells, consistent with mild chronic gastritis. GROSS DESCRIPTION A - Received in fixative is one container labeled with the patient's name and designated duodenum biopsy. The specimen consists of multiple irregular fragments of light douglas soft tissue that in aggregate measure 1 x 0.3 x 0.1 cm. The specimen is totally submitted in one cassette. B - Received in fixative is one container labeled with the patient's name and designated gastric body biopsy. The specimen consists of multiple irregular fragments of light douglas soft tissue that in aggregate measure 0.7 x 0.3 x 0.1 cm. The specimen is totally submitted in one cassette. C - Received in fixative is one container labeled with the patient's name and designated distal esophagus biopsy. The specimen consists of multiple irregular fragments of light douglas soft tissue that in aggregate measure 0.8 x 0.3 x 0.1 cm. The specimen is totally submitted in one cassette. / NAIMA:analy 05/07/21 TC:3 CPT: 02780 x3
[2021-05-07 08:50] VITALS: BP 107/68; BP 126/88; PULSE 78; RESP 16; TEMP 36.3; O2SAT 100
--- NOTE | 2021-05-07 08:53 | OP.CCLET_ITS ---
01/16/2022 Dayami Bullock Re : Upper GI endoscopy procedure for Alma Ayalar Ara This procedure was performed on Friday, May 07, 2021. My impressions and recommendations are as follows: Impressions : - Benign-appearing esophageal stenosis. Dilated. - LA Grade A reflux esophagitis. Biopsied. - Erythematous mucosa in the gastric body. Biopsied. - Congested duodenal mucosa. Biopsied. Recommendations : - Written discharge instructions were provided to the patient. - The signs and symptoms of potential delayed complications were discussed with the patient. - Patient has a contact number available for emergencies. - Return to normal activities tomorrow. - Resume previous diet. - Continue present medications. - Await pathology results. - Repeat upper endoscopy in 1 year for surveillance based on pathology results. - Return to GI clinic in 2 weeks. My findings are described in the full procedure note, which is enclosed. If I can be of further assistance, please feel free to contact me at . Sincerely, Chencho Skinner, 05/07/2021 8:52:41 AM This report has been signed electronically.
--- NOTE | 2021-05-07 08:53 | OP.EGD_ITS ---
Patient Name: Alma Pak Procedure Date: 05/07/2021 8:25 AM Date of : 1985 Age: 35 Procedure: Upper GI endoscopy Indications: Dysphagia Providers: Chencho Skinner DO Medicines: See the Anesthesia note for documentation of the administered medications Patient Profile: This is a 35 year old female. Refer to note in patient chart for documentation of history and physical. Patient has symptoms of chronic abdominal cramping, chronic abdominal distention, chronic epigastric abdominal pain and dysphagia with both liquids and solids. Complications: No immediate complications. Procedure: Pre-Anesthesia Assessment: - Prior to the procedure, a History and Physical was performed, and patient medications and allergies were reviewed. The risks and benefits of the procedure and the sedation options and risks were discussed with the patient. All questions were answered and informed consent was obtained. Patient identification and proposed procedure were verified by the physician in the pre-procedure area. Mental Status Examination: alert and oriented. Airway Examination: normal oropharyngeal airway and neck mobility. Respiratory Examination: clear to auscultation. CV Examination: normal. Prophylactic Antibiotics: The patient does not require prophylactic antibiotics. Prior Anticoagulants: The patient has taken no previous anticoagulant or antiplatelet agents. ASA Grade Assessment: II - A patient with mild systemic disease. After reviewing the risks and benefits, the patient was deemed in satisfactory condition to undergo the procedure. The anesthesia plan was to use moderate sedation / analgesia (conscious sedation). Immediately prior to administration of medications, the patient was re-assessed for adequacy to receive sedatives. The heart rate, respiratory rate, oxygen saturations, blood pressure, adequacy of pulmonary ventilation, and response to care were monitored throughout the procedure. The physical status of the patient was re-assessed after the procedure. After obtaining informed consent, the endoscope was passed under direct vision. Throughout the procedure, the patient's blood pressure, pulse, and oxygen saturations were monitored continuously. The gastroscope was introduced through the mouth, and advanced to the second part of duodenum. The upper GI endoscopy was accomplished without difficulty. The patient tolerated the procedure well. Moderate Sedation: Moderate (conscious) sedation was administered by the endoscopy nurse and supervised by the endoscopist. The patient's oxygen saturation, heart rate, blood pressure and response to care were monitored. Total physician intraservice time was 15 minutes. Scope In: 8:39:18 AM Scope Out: 8:46:31 AM Total Procedure Duration Time 0 hours 7 minutes 13 seconds Findings: One benign-appearing, intrinsic stenosis was found 38 to 40 cm from the incisors. This stenosis was mildly severe and measured 6 cm (in length). The stenosis was traversed. A guidewire was placed and the scope was withdrawn. Dilation was performed with a Savary dilator with no resistance at 60 Fr. The dilation site was examined following endoscope reinsertion and showed moderate improvement in luminal narrowing. Estimated blood loss was minimal. LA Grade A (one or more mucosal breaks less than 5 mm, not extending between tops of 2 mucosal folds) esophagitis with no bleeding was found 34 to 38 cm from the incisors. Biopsies were taken with a cold forceps for histology. Verification of patient identification for the specimen was done. Estimated blood loss was minimal. Patchy mildly erythematous mucosa without bleeding was found in the gastric body. Biopsies were taken with a cold forceps for histology. Estimated blood loss was minimal. Patchy mildly congested mucosa without active bleeding and with no stigmata of bleeding was found in the duodenal bulb. Biopsies were taken with a cold forceps for histology. Verification of patient identification for the specimen was done. Estimated blood loss was minimal. Impression: - Benign-appearing esophageal stenosis. Dilated. - LA Grade A reflux esophagitis. Biopsied. - Erythematous mucosa in the gastric body. Biopsied. - Congested duodenal mucosa. Biopsied. Recommendation: - Written discharge instructions were provided to the patient. - The signs and symptoms of potential delayed complications were discussed with the patient. - Patient has a contact number available for emergencies. - Return to normal activities tomorrow. - Resume previous diet. - Continue present medications. - Await pathology results. - Repeat upper endoscopy in 1 year for surveillance based on pathology results. - Return to GI clinic in 2 weeks. Procedure Code(s): --- Professional --- 21878, Esophagogastroduodenoscopy, flexible, transoral; with insertion of guide wire followed by passage of dilator(s) through esophagus over guide wire 32976, 59, Esophagogastroduodenoscopy, flexible, transoral; with biopsy, single or multiple 21521, 59, Moderate sedation services provided by the same physician or other qualified health long term care phlebotomist performing the diagnostic or therapeutic service that the sedation supports, requiring the presence of an independent trained observer to assist in the monitoring of the patient's level of consciousness and physiological status; initial 15 minutes of intraservice time, patient age 5 years or older CPT copyright 2017 [employer]. All rights reserved. The codes documented in this report are preliminary and upon certified prosthetist vice president review may be revised to meet current compliance requirements. Chencho Skinner DO 05/07/2021 8:52:41 AM This report has been signed electronically. Number of Addenda: 1 Note Initiated On: 05/07/2021 8:25 AM Addendum Number: 1 Addendum Date: 01/16/2022 7:22:49 AM MAC was used instead of moderate sedation for the patient. Chencho Skinner DO 01/16/2022 7:22:56 AM This report has been signed electronically.
[2021-05-07 08:55] VITALS: BP 111/76; BP 126/88; PULSE 79; RESP 16; O2SAT 99
[2021-05-07 09:00] VITALS: BP 104/69; BP 126/88; PULSE 69; RESP 16; O2SAT 100
[2021-05-07 09:05] VITALS: BP 106/85; BP 126/88; PULSE 70; RESP 16; TEMP 36.5; O2SAT 98
[2021-05-07 09:25] VITALS: BP 126/88
== END 2021-05-07 09:28 ==
LOC: EN 07:37 → AC 07:38
PROVIDERS: PCP Nurse Practitioner Family; Referring Provider Nurse Practitioner Family; Visit Provider Internal Medicine Gastroenterology
PROC: 0DJ08ZZ Inspection of Upper Intestinal Tract, Via Natural or Artificial Opening Endoscopic (ICD-10-PCS; CPT 43235; principal; 2021-05-07 08:40)
DX: K21.00 Gastro-esophageal reflux disease with esophagitis, without bleeding (principal); K22.2 Esophageal obstruction; K29.50 Unspecified chronic gastritis without bleeding; Z79.899 Other long term (current) drug therapy
CPT/HCPCS: 43239; 43248; 88305; 88342; J7120; C1769; J2405

== ENCOUNTER → 2021-05-10 09:50 | Outpatient (CLI) | payer OTHER, SELFPAY ==
[2021-05-11 13:07] LABS: Anti-Centromere B Ab <0.2 AI (0.0-0.9); Anti-Chromatin <0.2 AI (0.0-0.9); Anti-Jo <0.2 AI (0.0-0.9); Anti-Scleroderma-70 AB <0.2 AI (0.0-0.9); RNP Ab 0.3 AI (0.0-0.9); SJOGREN'S Anti-SS-A test < 0.2 AI (0.0-0.9); SJOGREN'S Anti-SS-B test < 0.2 AI (0.0-0.9); Smith Ab <0.2 AI (0.0-0.9)
[2021-05-11 15:07] LABS: Endomysial Antibody IgA Negative (Negative)
[2021-05-11 22:43] LABS: Immunoglobulin A 212 mg/dL (87-352); t-Transglutaminase IgA <2 U/mL (0-3)
[2021-05-11 23:13] LABS: Anti-dsDNA Ab 6 IU/mL (0-9)
== END ==
PROVIDERS: PCP Nurse Practitioner Family; Referring Provider Internal Medicine Gastroenterology; Visit Provider Internal Medicine Gastroenterology
DX: K29.60 Other gastritis without bleeding (principal)
CPT/HCPCS: 36415; 82784; 83516; 86225; 86235; 86255

== ENCOUNTER 2021-05-14 12:18 | Outpatient (CLI) | payer OTHER, SELFPAY ==
[2021-05-16 12:25] LABS: H. PYLORI STOOL AG Negative (Negative)
== END 2021-05-14 23:59 | disposition short-term general hospital (02) ==
LOC: LAB 12:22
PROVIDERS: PCP Nurse Practitioner Family; Visit Provider Internal Medicine Gastroenterology
DX: K29.60 Other gastritis without bleeding (principal)

== ENCOUNTER 2021-07-19 09:02 | Outpatient (CLI) | payer OTHER, SELFPAY ==
--- NOTE | 2021-07-19 09:25 | RAD_ITS ---
STUDY: X-RAY - ABDOMEN/PELVIS REASON FOR EXAM: Female, 36 years old. Motility study, day 3 TECHNIQUE: Two AP supine views of the abdomen and pelvis. COMPARISON: None. FINDINGS: Normal visualized lung bases. There is an abundance of fecal material throughout the colon. There is no demonstrated free abdominal air. There are 5 Sitz markers in the ascending colon, approximately 3 in the transverse colon and 14 in the descending colon and one in the sigmoid colon The visualized liver, spleen and kidneys are grossly normal in size and morphology. Normal soft tissue structures. Normal visualized osseous structures. RAD/Abdomen Single View IMPRESSION: Sitz marker distribution on day 3 as described above. Retained stool throughout the colon No free air or acute abnormality Electronically Signed: Quintin Harden MD at 10:55 EST ,
--- NOTE | 2021-07-21 09:18 | RAD_ITS ---
STUDY: X-RAY - ABDOMEN/PELVIS REASON FOR EXAM: Female, 36 years old. day five sitz TECHNIQUE: Two AP supine views of the abdomen and pelvis. COMPARISON: 07/19/2021 FINDINGS: 1 Sitzmark remains in the distal ascending colon. There are 12 Sitzmarks in the descending colon and 3 in the sigmoid colon. When compared to the previous study, there are significantly less Sitzmarks in both the ascending and descending colons. There is an abundance of fecal material throughout the colon. There is no demonstrated free abdominal air. The visualized liver, spleen and kidneys are grossly normal in size and morphology. Normal soft tissue structures. Normal visualized osseous structures. RAD/Abdomen Single View IMPRESSION: Sitzmarks described as above, significantly decreased amount of Sitzmarks compared to the previous study. Retained stool noted throughout colon Electronically Signed: Quintin Harden MD at 9:33 EST ,
== END 2021-07-19 23:59 | disposition home or self-care (01) ==
PROVIDERS: PCP Nurse Practitioner Family; Referring Provider Internal Medicine Gastroenterology; Visit Provider Internal Medicine Gastroenterology
DX: K59.00 Constipation, unspecified (principal)
CPT/HCPCS: 74018

== ENCOUNTER → 2024-09-30 | Outpatient (CLI) | payer OTHER, SELFPAY ==
[2024-09-30 11:44] LABS: Ferritin 48 ng/mL (22-378); Vitamin D,25 Hydroxy 27.1 ng/mL (30-100)
[2024-10-04 19:07] LABS: Zinc, WHOLE BLOOD 649 ug/dL (440-860)
== END | disposition home or self-care (01) ==
LOC: MTLAB 08:48
PROVIDERS: PCP Nurse Practitioner Family; Referring Provider Physician Assistant Medical; Visit Provider Physician Assistant Medical
DX: L65.9 Nonscarring hair loss, unspecified (principal)
CPT/HCPCS: 36415; 82306; 82728; 84630